=== PATIENT | male | born 1985 | race Caucasian/White ===

== ENCOUNTER 2017-07-14 00:28 | Emergency (ER) | payer MEDICAID ==
[~2017-07-14] VITALS: Ht 188 cm; Wt 104.3 kg
[2017-07-14] MEDS ORDERED: METH4TAB81 PO (01:16)
[2017-07-14] MEDS ORDERED: FAMO-128 PO (01:16)
[2017-07-14] MEDS ORDERED: DIPH25CA83 PO (01:16)
[2017-07-14 01:33] VITALS: BP 124/77
== END 2017-07-14 01:35 | disposition home or self-care (01) ==
LOC: ER 00:29
DX: T61.11XA Scombroid fish poisoning, accidental (unintentional), initial encounter (principal); Z79.899 Other long term (current) drug therapy; Y92.9 Unspecified place or not applicable
CPT/HCPCS: 93005; 99283